=== PATIENT | male | born 1980 | race Caucasian/White ===

== ENCOUNTER 2017-06-24 02:38 | Emergency (ER) | payer OTHER, MEDICAID ==
[~2017-06-24] VITALS: Ht 172.7 cm; Wt 90.5 kg
[2017-06-24 02:43] VITALS: BP 164/101; PULSE 118; RESP 15; TEMP 98.7; O2SAT 96
--- NOTE | 2017-06-24 04:01 | PD ---
HPI Chief Complaint: Pain: Acute or Chronic Time Seen by Provider: 03:52 Travel History International Travel<30 days: No Contact w/Intl Traveler<30days: No Traveled to known affect area: No History of Present Illness HPI 29-year-old male with schizoaffective disorder presents to the emergency department complaining of left arm paresthesias. The been ongoing for months. Chronic. Some radiation into the chest. History Past Medical History Narrative Medical Schizoaffective disorder, bipolar disorder Social History Tobacco Use: No Allergies-Medications (Allergen,Severity, Reaction): Coded Allergies: No Known Allergies (Unverified , 06/24/17) Review of Systems ROS Limitations: Poor Historian Physical Exam Narrative GENERAL: 29-year-old man, bizarre, no acute distress. SKIN: Focused skin assessment warm/dry. NECK: Trachea midline. No JVD. CARDIOVASCULAR: Regular rate and rhythm. No murmur appreciated. RESPIRATORY: No accessory muscle use. Clear to auscultation. Breath sounds equal bilaterally. GASTROINTESTINAL: Abdomen soft, non-tender, nondistended. Hepatic and splenic margins not palpable. MUSCULOSKELETAL: No obvious deformities. Focus examination of the left upper extremity reveals normal gross appearance. Radial/ulnar/median nerve function is intact. Good peripheral pulses. Capillary refill about 2-3 seconds. Sensation intact to light touch. NEUROLOGICAL: Awake and alert. No obvious cranial nerve deficits. Motor grossly within normal limits. Normal speech. PSYCHIATRIC: Bizarre. A little bit disorganized. Is not obviously responding to internal stimuli. No margarette delusions. Data Data Last Documented VS Vital Signs Date Time Temp Pulse Resp B/P (MAP) Pulse Ox O2 Delivery O2 Flow Rate FiO2 06/24/17 02:43 98.7 118 15 164/101 (122) 96 Room Air MDM Medical Decision Making Medical Screen Exam Complete: Yes Emergency Medical Condition: Yes Differential Diagnosis Pierced seizures, anxiety, schizophrenia, other Narrative Course Medical decision making 37-year-old man presents emergency Department with left arm paresthesias times months. Looks well. Schizophrenic. Recommend outpatient follow-up. Diagnosis Primary Impression: Paresthesia of left arm Referrals: [facility] 1 week Additional Instructions: Follow-up with outpatient resources for further evaluation. Med/Other Pt SpecificInfo: No Change to Meds Disposition: 01 DISCHARGE HOME Condition: Stable Naren Fatima MD Jun 24, 2017 04:01
== END 2017-06-24 04:32 | disposition home or self-care (01) ==
LOC: NEPC 02:38
DX: R20.2 Paresthesia of skin (principal)
CPT/HCPCS: 99281